=== PATIENT | male | born 1930 | race Asian ===

== ENCOUNTER → 2016-09-02 | Outpatient (CLI) | payer BC ==
[~2016-09-02] MED LIST: ALEN70SO PO; ASPI81CH43 PO; CARV3.1213 PO; FUR40T PO; LISI-275 PO; POTA20TA53 PO; SIMV-13 PO
[2016-09-02 09:23] LABS: Albumin 3.9 g/dL (3.4-5.0); BUN/Creatinine Ratio 16.4; Bilirubin, Total 0.6 mg/dL (0.2-1.0); Calcium 9.4 mg/dL (8.5-10.1); Potassium 4.1 mmol/L (3.5-5.1); Total Protein 7.1 g/dL (6.4-8.2)
== END | disposition home or self-care (01) ==
LOC: LAB 06:57
PROVIDERS: ATTEND Internal Medicine
DX: E78.00 Pure hypercholesterolemia, unspecified (principal); I10 Essential (primary) hypertension; N18.2 Chronic kidney disease, stage 2 (mild)
CPT/HCPCS: 36415; 80053; 80061

== ENCOUNTER → 2017-01-04 | Outpatient (CLI) | payer BC ==
[~2017-01-04] VITALS: Ht 175.3 cm; Wt 63.5 kg
[~2017-01-04] MED LIST changes: +CALC600T10 OR
[2017-01-04 12:08] LABS: Basophils # (auto) 0 uL; DEFINITIVE VIEW TRANSMISSION; Eosinophils # (auto) 0.1 uL; Eosinophils % (auto) 0.6 % (0.0-7.0); Hematocrit 31.2 % (41.0-53.0); Hemoglobin 9.5 g/dL (13.5-17.5); Lymphocytes # (auto) 0.7 uL; Lymphocytes % (auto) 6.7 % (10.0-50.0); Mean Corpuscular Hemoglobin 22.4 pg (28.0-32.0); Mean Corpuscular Hgb Conc. 30.5 g/dL (32.0-36.0); Mean Corpuscular Volume 73.5 fL (80.0-100.0); Mean Platelet Volume 10.3 fL (7.4-10.4); Monocytes # (auto) 0.8 uL; Monocytes % (auto) 7.6 % (0.0-12.0); Neutrophils # (auto) 8.8 uL; Neutrophils % (auto) 85.1 % (37.0-80.0); Platelet Count (auto) 265 10^3/uL (140-450); SUSPECT VIEW TRANSMISSION; White Blood Cell 10.3 10^3/uL (4.4-10.8)
[2017-01-04 12:14] LABS: INR 1.15 (0.9-1.15); Partial Thromboplastin Time 28.6 sec (22.64-33.71); Prothrombin Time 12.4 sec (9.37-12.3)
[2017-01-04 12:20] LABS: Red Cell Distribution Width 26.5 % (11.6-16.0)
[2017-01-04 12:21] LABS: Anisocytosis Moderate; Hypochromia Moderate; Microcytosis Moderate; Platelet Estimate Adequate
[2017-01-04 12:33] LABS: Albumin 3.5 g/dL (3.4-5.0); BUN/Creatinine Ratio 23.3; Bilirubin, Total 1.3 mg/dL (0.2-1.0); Calcium 8.8 mg/dL (8.5-10.1); Potassium 4.1 mmol/L (3.5-5.1); Total Protein 6.5 g/dL (6.4-8.2)
== END | disposition home or self-care (01) ==
LOC: LAB 10:59
PROVIDERS: ATTEND Internal Medicine Cardiovascular Disease
DX: Z01.810 Encounter for preprocedural cardiovascular examination (principal); T82.111A Breakdown (mechanical) of cardiac pulse generator (battery), initial encounter
CPT/HCPCS: 36415; 80053; 85025; 85610; 85730

== ENCOUNTER 2017-01-06 09:06 | Day surgery (SDC) | payer BC ==
[~2017-01-06 09:06] MED LIST changes: -ALEN70SO PO; -ASPI81CH43 PO; +CAR3125T PO; -CARV3.1213 PO; -LISI-275 PO
[2017-01-06] MEDS ORDERED: LIDOCAINE 2%HCL (LOCAL ANESTH.) INJ 20ML MDV ONE (09:55)
[2017-01-06] MEDS ORDERED: VANCOMYCIN HCL 1000 MG VL IR ONE (10:00)
[2017-01-06] MEDS ORDERED: VANCOMYCIN 1GM/250ML D5W 250 ML IV ONE (10:00)
[2017-01-06] MEDS ORDERED: ceFAZolin 1GM/50ML D5W 50 ML IV ONE (10:00)
[2017-01-06] MEDS ORDERED: MIDAZOLAM HCL 1MG/1ML-2 ML VIAL ONE (10:33)
[2017-01-06] MEDS ORDERED: fentaNYL CITRATE 100 MCG/2 ML VL ONE (10:33)
[2017-01-06] MEDS ORDERED: ceFAZolin 1GM VL ONE (10:39)
[2017-01-06] MEDS ORDERED: VANCOMYCIN HCL 1000 MG VL ONE (10:39)
== END 2017-01-06 13:25 | disposition home or self-care (01) ==
LOC: CATH 09:06
PROVIDERS: ATTEND Internal Medicine Cardiovascular Disease
DX: Z45.010 Encounter for checking and testing of cardiac pacemaker pulse generator [battery] (principal); I50.9 Heart failure, unspecified; J44.9 Chronic obstructive pulmonary disease, unspecified; I48.92 Unspecified atrial flutter; E78.00 Pure hypercholesterolemia, unspecified; I50.22 Chronic systolic (congestive) heart failure; I12.9 Hypertensive chronic kidney disease with stage 1 through stage 4 chronic kidney disease, or unspecified chronic kidney disease; N18.2 Chronic kidney disease, stage 2 (mild); J45.909 Unspecified asthma, uncomplicated; Z87.891 Personal history of nicotine dependence
CPT/HCPCS: 33228; C1785; J0690; J2250; J3010; J3370; 99152

== ENCOUNTER 2017-01-21 09:25 | Inpatient (IN) | payer BC ==
[~2017-01-21] VITALS: Ht 175.3 cm; Wt 68.8 kg
[2017-01-21] MEDS ORDERED: PIPERACILLIN-TAZOB 3.375GM 100 ML IV ONE (10:00)
[2017-01-21] MEDS ORDERED: SODIUM CHLORIDE 0.9% 1,000 ML IV ONE ×3 (10:00→10:43)
[2017-01-21] MEDS ORDERED: FUROSEMIDE 40 MG/4 ML VIAL IV ONE (10:00)
[2017-01-21 10:04] LABS: Basophils # (auto) 0 uL; DEFINITIVE VIEW TRANSMISSION; Eosinophils # (auto) 0 uL; Eosinophils % (auto) 0.1 % (0.0-7.0); Hematocrit 30.5 % (41.0-53.0); Hemoglobin 9.6 g/dL (13.5-17.5); Lymphocytes # (auto) 0.6 uL; Lymphocytes % (auto) 4.7 % (10.0-50.0); Mean Corpuscular Hemoglobin 23.5 pg (28.0-32.0); Mean Corpuscular Hgb Conc. 31.3 g/dL (32.0-36.0); Mean Corpuscular Volume 75.2 fL (80.0-100.0); Mean Platelet Volume 9.6 fL (7.4-10.4); Monocytes # (auto) 0.6 uL; Monocytes % (auto) 4.6 % (0.0-12.0); Neutrophils # (auto) 11.5 uL; Neutrophils % (auto) 90.6 % (37.0-80.0); Platelet Count (auto) 313 10^3/uL (140-450); SUSPECT VIEW TRANSMISSION; White Blood Cell 12.7 10^3/uL (4.4-10.8)
[2017-01-21 10:07] LABS: Red Cell Distribution Width 25.8 % (11.6-16.0)
[2017-01-21 10:23] LABS: Anisocytosis Moderate; Burr Cells FEW; Hypochromia Moderate; Ovalocytes FEW; Platelet Estimate Adequate
[2017-01-21 10:28] LABS: REFLEX LACTIC ACID YES OR NO YES
[2017-01-21 10:41] LABS: Albumin 3.4 g/dL (3.4-5.0); BUN/Creatinine Ratio 20.4; Bilirubin, Total 1.1 mg/dL (0.2-1.0); Calcium 8.6 mg/dL (8.5-10.1); Magnesium 3.7 mg/dL (1.6-2.6); Potassium 3.9 mmol/L (3.5-5.1); Total Protein 6.8 g/dL (6.4-8.2)
[2017-01-21 11:26] LABS: B-Type Natriuretic Peptide > 5000.00 pg/mL (0-100); Temperature: 22.5 C (20.0-25.0)
[2017-01-21 12:54] LABS: Urine Bilirubin Negative (Negative); Urine Blood TRACE /uL (Negative); Urine Color Yellow (Yellow); Urine Glucose Normal (Normal); Urine Ketone Negative (Negative); Urine Nitrite Negative (Negative); Urine RBC 6 /hpf (0 - 3); Urine Urobilinogen Normal (Negative)
[2017-01-21] MEDS ORDERED: SODIUM CHLORIDE 0.9% 1,000 ML IV SCH (13:55)
[2017-01-21] MEDS ORDERED: LORazepam 0.5 MG TAB PO PRN (14:00)
[2017-01-21] MEDS ORDERED: NITROGLYCERIN 0.4 MG SL TAB SL PRN (14:00)
[2017-01-21] MEDS ORDERED: PROMETHAZINE HCL 25 MG/ML 1ML IV PRN (14:00)
[2017-01-21] MEDS ORDERED: ACETAMINOPHEN 500 MG TAB PO PRN (14:00)
[2017-01-21] MEDS ORDERED: MORPHINE SULF INJ 2 MG/ML SYRINGE 1ML IV PRN ×2 (14:00)
[2017-01-21] MEDS ORDERED: LACTULOSE 20Gm/30ML SOLN PO PRN (14:00)
[2017-01-21] MEDS ORDERED: cefTRIAXone 1GM/50ML D5W 50 ML IV ONE (14:30)
[2017-01-21 14:59] LABS: Partial Thromboplastin Time 32.9 sec (22.64-33.71)
[2017-01-21 15:00] LABS: INR 1.21 (0.9-1.15); Prothrombin Time 13.2 sec (9.37-12.3)
[2017-01-21 15:24] LABS: Temperature: 23.1 C (20.0-25.0)
[2017-01-21] MEDS: CALCIUM W/VIT D (600MG/400IU) TAB PO SCH (15:59)
[2017-01-21] MEDS: PANTOPRAZOLE 40 MG TAB PO SCH (15:59)
[2017-01-21] MEDS: NITROGLYCERIN 0.2MG/HR TOPICAL PATCH TD SCH (16:00)
[2017-01-21 17:12] LABS: Lactic Acid w/Reflex 3.3 mmol/L (0.4-2.0)
[2017-01-21 17:14] LABS: REFLEX LACTIC ACID YES OR NO NO
[2017-01-21] MEDS ORDERED: CARVEDILOL 3.125 MG TAB PO SCH (22:00)
[2017-01-21] MEDS: CARVEDILOL 3.125 MG TAB PO SCH (22:00)
[2017-01-21] MEDS: ATORVASTATIN 20 MG TAB PO SCH (22:27)
[2017-01-22] MEDS ORDERED: ASPirin 81 mg TAB PO ONE (01:30)
[2017-01-22 06:32] LABS: Basophils # (auto) 0 uL; DEFINITIVE VIEW TRANSMISSION; Eosinophils # (auto) 0 uL; Hematocrit 29.4 % (41.0-53.0); Hemoglobin 9.3 g/dL (13.5-17.5); Lymphocytes # (auto) 0.6 uL; Lymphocytes % (auto) 5.4 % (10.0-50.0); Mean Corpuscular Hemoglobin 23.6 pg (28.0-32.0); Mean Corpuscular Hgb Conc. 31.5 g/dL (32.0-36.0); Mean Corpuscular Volume 74.9 fL (80.0-100.0); Mean Platelet Volume 9.8 fL (7.4-10.4); Monocytes # (auto) 0.6 uL; Monocytes % (auto) 4.9 % (0.0-12.0); Neutrophils # (auto) 10.8 uL; Neutrophils % (auto) 89.7 % (37.0-80.0); Platelet Count (auto) 307 10^3/uL (140-450); SUSPECT VIEW TRANSMISSION
[2017-01-22 06:53] LABS: Albumin 2.7 g/dL (3.4-5.0); Calcium 8.2 mg/dL (8.5-10.1)
[2017-01-22 06:57] LABS: BUN/Creatinine Ratio 19.8; Bilirubin, Total 0.9 mg/dL (0.2-1.0)
[2017-01-22 07:22] LABS: Red Cell Distribution Width 25.5 % (11.6-16.0)
[2017-01-22 07:43] LABS: Burr Cells MODERATE
[2017-01-22 07:44] LABS: Ovalocytes FEW; Polychromasia Slight
[2017-01-22 07:45] LABS: Anisocytosis Moderate; Hypochromia Moderate
[2017-01-22 07:46] LABS: Giant Platelets Few; Platelet Estimate Adequate
[2017-01-22 08:02] LABS: B-Type Natriuretic Peptide > 5000.00 pg/mL (0-100); Temperature: 23.1 C (20.0-25.0)
[2017-01-22] MEDS: cefTRIAXone 1GM/50ML D5W 50 ML IV SCH (09:09)
[2017-01-22] MEDS: CARVEDILOL 3.125 MG TAB PO SCH ×3 (10:00→22:47)
[2017-01-22] MEDS: NITROGLYCERIN 0.2MG/HR TOPICAL PATCH TD SCH (10:00)
[2017-01-22] MEDS: PANTOPRAZOLE 40 MG TAB PO SCH (10:49)
[2017-01-22] MEDS: CALCIUM W/VIT D (600MG/400IU) TAB PO SCH (10:49)
[2017-01-22 11:58] LABS: Vitamin B12 > 2000 pg/mL (211-911)
[2017-01-22 12:03] LABS: Temperature: 23.7 C (20.0-25.0)
[2017-01-22] MEDS: SODIUM BICARBONATE 50ML VIAL 50 ML in D5W 5% 1,000 ML IV SCH ×2 (12:57→20:05)
[2017-01-22 14:00] VITALS: BP 105/58
[2017-01-22 20:00] VITALS: BP 105/58
[2017-01-22] MEDS: ATORVASTATIN 20 MG TAB PO SCH (21:26)
[2017-01-22] MEDS: metroNIDAZOLE 500 MG TAB PO SCH (21:26)
[2017-01-22 22:00] VITALS: BP 114/59
[2017-01-23] MEDS: SODIUM BICARBONATE 50ML VIAL 50 ML in D5W 5% 1,000 ML IV SCH ×3 (04:48→21:36)
[2017-01-23 05:00] VITALS: BP 119/79
[2017-01-23] MEDS: metroNIDAZOLE 500 MG TAB PO SCH ×3 (05:19→21:33)
[2017-01-23 06:31] LABS: Basophils # (auto) 0 uL; DEFINITIVE VIEW TRANSMISSION; Eosinophils # (auto) 0 uL; Hematocrit 29.8 % (41.0-53.0); Hemoglobin 9.4 g/dL (13.5-17.5); Lymphocytes # (auto) 0.4 uL; Lymphocytes % (auto) 2.9 % (10.0-50.0); Mean Corpuscular Hemoglobin 23.7 pg (28.0-32.0); Mean Corpuscular Hgb Conc. 31.4 g/dL (32.0-36.0); Mean Corpuscular Volume 75.4 fL (80.0-100.0); Mean Platelet Volume 10.4 fL (7.4-10.4); Monocytes % (auto) 7.1 % (0.0-12.0); Neutrophils # (auto) 12.5 uL; Platelet Count (auto) 302 10^3/uL (140-450); SUSPECT VIEW TRANSMISSION; White Blood Cell 13.9 10^3/uL (4.4-10.8)
[2017-01-23 06:34] LABS: Red Cell Distribution Width 26.1 % (11.6-16.0)
[2017-01-23 06:43] LABS: Albumin 2.9 g/dL (3.4-5.0); BUN/Creatinine Ratio 20.7; Bilirubin, Total 0.8 mg/dL (0.2-1.0); Calcium 8.5 mg/dL (8.5-10.1); Potassium 4.8 mmol/L (3.5-5.1); Total Protein 6.1 g/dL (6.4-8.2)
[2017-01-23 06:55] LABS: Anisocytosis Moderate; Burr Cells MODERATE; Platelet Estimate Adequate
[2017-01-23 06:56] LABS: Hypochromia Moderate; Large Platelets FEW; Ovalocytes MODERATE
[2017-01-23 07:38] LABS: Lactic Acid w/Reflex 3.6 mmol/L (0.4-2.0)
[2017-01-23 07:43] LABS: REFLEX LACTIC ACID YES OR NO YES
[2017-01-23 09:51] VITALS: BP 124/64
[2017-01-23] MEDS: cefTRIAXone 1GM/50ML D5W 50 ML IV SCH (10:32)
[2017-01-23] MEDS: PANTOPRAZOLE 40 MG TAB PO SCH (10:52)
[2017-01-23] MEDS: CARVEDILOL 3.125 MG TAB PO SCH ×2 (10:52→21:40)
[2017-01-23] MEDS: CALCIUM W/VIT D (600MG/400IU) TAB PO SCH (10:52)
[2017-01-23] MEDS: ASPirin-EC 81 mg tab PO SCH (10:52)
[2017-01-23] MEDS: NITROGLYCERIN 0.2MG/HR TOPICAL PATCH TD SCH (10:54)
[2017-01-23 13:21] VITALS: BP 107/68
[2017-01-23 17:12] VITALS: BP 108/53
[2017-01-23 20:00] VITALS: BP 107/68
[2017-01-23] MEDS: ATORVASTATIN 20 MG TAB PO SCH (21:33)
[2017-01-23 22:00] VITALS: BP 103/64
[2017-01-24 05:00] VITALS: BP 113/55
[2017-01-24] MEDS: metroNIDAZOLE 500 MG TAB PO SCH ×3 (06:44→21:25)
[2017-01-24] MEDS: SODIUM BICARBONATE 50ML VIAL 50 ML in D5W 5% 1,000 ML IV SCH (06:44)
[2017-01-24 07:02] LABS: Basophils # (auto) 0 uL; DEFINITIVE VIEW TRANSMISSION; Eosinophils # (auto) 0.1 uL; Eosinophils % (auto) 0.8 % (0.0-7.0); Hematocrit 26.6 % (41.0-53.0); Hemoglobin 8.2 g/dL (13.5-17.5); Lymphocytes # (auto) 0.4 uL; Mean Corpuscular Hemoglobin 23.5 pg (28.0-32.0); Mean Corpuscular Hgb Conc. 30.8 g/dL (32.0-36.0); Mean Corpuscular Volume 76.3 fL (80.0-100.0); Mean Platelet Volume 9.9 fL (7.4-10.4); Monocytes # (auto) 0.7 uL; Monocytes % (auto) 5.7 % (0.0-12.0); Neutrophils # (auto) 10.9 uL; Neutrophils % (auto) 90.5 % (37.0-80.0); Platelet Count (auto) 248 10^3/uL (140-450); SUSPECT VIEW TRANSMISSION
[2017-01-24 07:03] LABS: Potassium 3.3 mmol/L (3.5-5.1)
[2017-01-24 07:06] LABS: BUN/Creatinine Ratio 21.5; Calcium 7.8 mg/dL (8.5-10.1)
[2017-01-24 07:13] LABS: Red Cell Distribution Width 25.7 % (11.6-16.0)
[2017-01-24 08:54] VITALS: BP 105/59
[2017-01-24 08:58] LABS: Platelet Estimate Adequate
[2017-01-24 08:59] LABS: Anisocytosis Moderate; Burr Cells MODERATE; Hypochromia Moderate; Large Platelets FEW; Ovalocytes MODERATE
[2017-01-24] MEDS ORDERED: POTASSIUM CHL 20 Meq TABLET PO ONE ×2 (09:00→09:54)
[2017-01-24] MEDS: cefTRIAXone 1GM/50ML D5W 50 ML IV SCH (09:21)
[2017-01-24] MEDS: CALCIUM W/VIT D (600MG/400IU) TAB PO SCH (09:56)
[2017-01-24] MEDS: NITROGLYCERIN 0.2MG/HR TOPICAL PATCH TD SCH (09:56)
[2017-01-24] MEDS: PANTOPRAZOLE 40 MG TAB PO SCH (10:00)
[2017-01-24] MEDS: CARVEDILOL 3.125 MG TAB PO SCH ×2 (10:01→21:25)
[2017-01-24] MEDS: ASPirin-EC 81 mg tab PO SCH (10:02)
[2017-01-24 13:00] VITALS: BP 107/54
[2017-01-24 17:00] VITALS: BP 113/49
[2017-01-24] MEDS: D5W/SOD CHL 0.45%/KCL 20MEQ 1,000 ML IV SCH (17:27)
[2017-01-24 20:00] VITALS: BP 106/54
[2017-01-24] MEDS: ATORVASTATIN 20 MG TAB PO SCH (21:25)
[2017-01-24 22:00] VITALS: BP 106/54
[2017-01-25 05:00] VITALS: BP 112/62
[2017-01-25 05:34] LABS: Basophils # (auto) 0 uL; Basophils % (auto) 0.1 % (0.0-2.0); DEFINITIVE VIEW TRANSMISSION; Eosinophils # (auto) 0.2 uL; Eosinophils % (auto) 1.5 % (0.0-7.0); Hematocrit 29.8 % (41.0-53.0); Hemoglobin 9.4 g/dL (13.5-17.5); Lymphocytes # (auto) 6.5 uL; Lymphocytes % (auto) 48.1 % (10.0-50.0); Mean Corpuscular Hemoglobin 23.6 pg (28.0-32.0); Mean Corpuscular Hgb Conc. 31.4 g/dL (32.0-36.0); Mean Corpuscular Volume 75.3 fL (80.0-100.0); Mean Platelet Volume 10.1 fL (7.4-10.4); Monocytes # (auto) 0.1 uL; Monocytes % (auto) 0.9 % (0.0-12.0); Neutrophils # (auto) 6.6 uL; Neutrophils % (auto) 49.4 % (37.0-80.0); Platelet Count (auto) 284 10^3/uL (140-450); SUSPECT VIEW TRANSMISSION; White Blood Cell 13.4 10^3/uL (4.4-10.8)
[2017-01-25 05:55] LABS: Red Cell Distribution Width 25.6 % (11.6-16.0)
[2017-01-25 06:03] LABS: Potassium 3.5 mmol/L (3.5-5.1)
[2017-01-25 06:10] LABS: Albumin 2.4 g/dL (3.4-5.0); BUN/Creatinine Ratio 21.9; Calcium 7.7 mg/dL (8.5-10.1)
[2017-01-25 06:12] LABS: Bilirubin, Total 0.7 mg/dL (0.2-1.0); Total Protein 5.5 g/dL (6.4-8.2)
[2017-01-25] MEDS: D5W/SOD CHL 0.45%/KCL 20MEQ 1,000 ML IV SCH ×3 (06:27→17:30)
[2017-01-25 07:38] LABS: Anisocytosis Moderate; Platelet Estimate Adequate
[2017-01-25 07:39] LABS: Hypochromia Moderate; Microcytosis Slight; Ovalocytes FEW
[2017-01-25 07:40] LABS: Burr Cells MODERATE
[2017-01-25] MEDS: metroNIDAZOLE 500 MG TAB PO SCH ×3 (07:40→22:03)
[2017-01-25 08:00] VITALS: BP 105/59
[2017-01-25 09:00] VITALS: BP 112/68
[2017-01-25] MEDS: NITROGLYCERIN 0.2MG/HR TOPICAL PATCH TD SCH (10:00)
[2017-01-25] MEDS: CARVEDILOL 3.125 MG TAB PO SCH ×2 (10:00→22:03)
[2017-01-25] MEDS: cefTRIAXone 1GM/50ML D5W 50 ML IV SCH (10:24)
[2017-01-25] MEDS: PANTOPRAZOLE 40 MG TAB PO SCH (10:24)
[2017-01-25] MEDS: CALCIUM W/VIT D (600MG/400IU) TAB PO SCH (10:24)
[2017-01-25] MEDS: ASPirin-EC 81 mg tab PO SCH (10:24)
[2017-01-25 13:00] VITALS: BP 112/65
[2017-01-25 17:00] VITALS: BP 124/67
[2017-01-25] MEDS: BOOST PLUS 8 ounce PO SCH (18:00)
[2017-01-25 21:30] VITALS: BP 117/57
[2017-01-25] MEDS: ATORVASTATIN 20 MG TAB PO SCH (22:03)
[2017-01-25] MEDS: TEMAZEPAM 15 MG CAP PO PRN (22:03)
[2017-01-26] MEDS: D5W/SOD CHL 0.45%/KCL 20MEQ 1,000 ML IV SCH ×3 (01:05→18:30)
[2017-01-26 05:00] VITALS: BP 105/64
[2017-01-26] MEDS: metroNIDAZOLE 500 MG TAB PO SCH ×3 (05:33→21:46)
[2017-01-26 06:03] LABS: Basophils # (auto) 0 uL; DEFINITIVE VIEW TRANSMISSION; Eosinophils # (auto) 0.1 uL; Eosinophils % (auto) 0.9 % (0.0-7.0); Hematocrit 29.5 % (41.0-53.0); Lymphocytes # (auto) 0.6 uL; Lymphocytes % (auto) 5.3 % (10.0-50.0); Mean Corpuscular Hemoglobin 23.6 pg (28.0-32.0); Mean Corpuscular Hgb Conc. 30.6 g/dL (32.0-36.0); Mean Platelet Volume 9.5 fL (7.4-10.4); Monocytes % (auto) 7.9 % (0.0-12.0); Neutrophils # (auto) 10.4 uL; Neutrophils % (auto) 85.9 % (37.0-80.0); Platelet Count (auto) 255 10^3/uL (140-450); SUSPECT VIEW TRANSMISSION; White Blood Cell 12.1 10^3/uL (4.4-10.8)
[2017-01-26 06:13] LABS: Red Cell Distribution Width 25.6 % (11.6-16.0)
[2017-01-26 06:16] LABS: BUN/Creatinine Ratio 22.7; Calcium 7.7 mg/dL (8.5-10.1); Potassium 3.3 mmol/L (3.5-5.1)
[2017-01-26 06:45] LABS: Anisocytosis Moderate; Burr Cells MODERATE; Platelet Estimate Adequate
[2017-01-26 06:46] LABS: Hypochromia Moderate; Microcytosis Slight; Schistocytes FEW
[2017-01-26 06:47] LABS: Hypersegmented Neutrophils Present; Ovalocytes MODERATE
[2017-01-26] MEDS: BOOST PLUS 8 ounce PO SCH ×2 (08:00→18:12)
[2017-01-26 08:30] VITALS: BP 102/49
[2017-01-26] MEDS ORDERED: MIDAZOLAM HCL 1MG/1ML-2 ML VIAL ONE (08:49)
[2017-01-26] MEDS ORDERED: fentaNYL CITRATE 100 MCG/2 ML VL ONE (08:49)
[2017-01-26] MEDS ORDERED: LIDOCAINE 2%HCL (LOCAL ANESTH.) INJ 20ML MDV ONE ×2 (08:53→11:20)
[2017-01-26] MEDS: NITROGLYCERIN 0.2MG/HR TOPICAL PATCH TD SCH (10:00)
[2017-01-26] MEDS: CALCIUM W/VIT D (600MG/400IU) TAB PO SCH (10:45)
[2017-01-26] MEDS: cefTRIAXone 1GM/50ML D5W 50 ML IV SCH (10:45)
[2017-01-26] MEDS: ASPirin-EC 81 mg tab PO SCH (10:46)
[2017-01-26] MEDS: CARVEDILOL 3.125 MG TAB PO SCH ×2 (10:46→21:45)
[2017-01-26] MEDS: PANTOPRAZOLE 40 MG TAB PO SCH (10:46)
[2017-01-26 12:00] VITALS: BP 108/61
[2017-01-26 17:30] VITALS: BP 108/56
[2017-01-26 21:37] VITALS: BP 92/52
[2017-01-26] MEDS: ATORVASTATIN 20 MG TAB PO SCH (21:46)
[2017-01-26] MEDS: TEMAZEPAM 15 MG CAP PO PRN (21:46)
[2017-01-27] MEDS: D5W/SOD CHL 0.45%/KCL 20MEQ 1,000 ML IV SCH ×4 (02:53→22:26)
[2017-01-27] MEDS: metroNIDAZOLE 500 MG TAB PO SCH ×3 (05:32→22:04)
[2017-01-27 05:36] VITALS: BP 127/64
[2017-01-27 07:45] LABS: Basophils # (auto) 0 uL; DEFINITIVE VIEW TRANSMISSION; Eosinophils # (auto) 0.1 uL; Hematocrit 28.1 % (41.0-53.0); Hemoglobin 8.5 g/dL (13.5-17.5); Lymphocytes # (auto) 0.6 uL; Lymphocytes % (auto) 5.5 % (10.0-50.0); Mean Corpuscular Hemoglobin 23.2 pg (28.0-32.0); Mean Corpuscular Hgb Conc. 30.3 g/dL (32.0-36.0); Mean Corpuscular Volume 76.6 fL (80.0-100.0); Mean Platelet Volume 10.1 fL (7.4-10.4); Monocytes # (auto) 0.8 uL; Monocytes % (auto) 7.2 % (0.0-12.0); Neutrophils # (auto) 9.5 uL; Neutrophils % (auto) 86.3 % (37.0-80.0); Platelet Count (auto) 274 10^3/uL (140-450); SUSPECT VIEW TRANSMISSION
[2017-01-27 07:55] LABS: Red Cell Distribution Width 25.4 % (11.6-16.0)
[2017-01-27 08:00] VITALS: BP_SYST 105; BP_SYST 127; BP_DIAS 64; BP_DIAS 78
[2017-01-27] MEDS: BOOST PLUS 8 ounce PO SCH ×2 (08:00→18:00)
[2017-01-27 08:12] LABS: BUN/Creatinine Ratio 22.8; Calcium 7.4 mg/dL (8.5-10.1); Potassium 3.6 mmol/L (3.5-5.1)
[2017-01-27] MEDS: NITROGLYCERIN 0.2MG/HR TOPICAL PATCH TD SCH (10:00)
[2017-01-27] MEDS: CALCIUM W/VIT D (600MG/400IU) TAB PO SCH (10:28)
[2017-01-27] MEDS: PANTOPRAZOLE 40 MG TAB PO SCH (10:28)
[2017-01-27] MEDS: ASPirin-EC 81 mg tab PO SCH (10:36)
[2017-01-27] MEDS: CARVEDILOL 3.125 MG TAB PO SCH ×2 (10:37→22:00)
[2017-01-27 11:20] LABS: Anisocytosis Moderate; Microcytosis Slight
[2017-01-27 11:21] LABS: Burr Cells MODERATE; Hypochromia Moderate
[2017-01-27 11:24] LABS: Ovalocytes FEW; Platelet Estimate Adequate; Schistocytes FEW; Tear Drop Cells FEW
[2017-01-27 13:00] VITALS: BP 105/53
[2017-01-27] MEDS: cefTRIAXone 1GM/50ML D5W 50 ML IV SCH (13:27)
[2017-01-27 17:44] VITALS: BP 105/55
[2017-01-27 22:00] VITALS: BP 90/47
[2017-01-27] MEDS: ATORVASTATIN 20 MG TAB PO SCH (22:04)
[2017-01-27 23:35] VITALS: BP 117/69
[2017-01-28 05:00] VITALS: BP 100/62
[2017-01-28] MEDS: metroNIDAZOLE 500 MG TAB PO SCH ×2 (05:32→15:01)
[2017-01-28 06:12] LABS: Basophils # (auto) 0 uL; DEFINITIVE VIEW TRANSMISSION; Eosinophils # (auto) 0.1 uL; Eosinophils % (auto) 0.6 % (0.0-7.0); Hematocrit 28.6 % (41.0-53.0); Hemoglobin 8.8 g/dL (13.5-17.5); Lymphocytes # (auto) 0.8 uL; Lymphocytes % (auto) 6.1 % (10.0-50.0); Mean Corpuscular Hemoglobin 23.2 pg (28.0-32.0); Mean Corpuscular Hgb Conc. 30.7 g/dL (32.0-36.0); Mean Corpuscular Volume 75.5 fL (80.0-100.0); Mean Platelet Volume 9.7 fL (7.4-10.4); Monocytes # (auto) 0.8 uL; Neutrophils # (auto) 11.8 uL; Neutrophils % (auto) 87.3 % (37.0-80.0); Platelet Count (auto) 259 10^3/uL (140-450); SUSPECT VIEW TRANSMISSION; White Blood Cell 13.5 10^3/uL (4.4-10.8)
[2017-01-28 06:46] LABS: BUN/Creatinine Ratio 24.2; Calcium 7.7 mg/dL (8.5-10.1); Potassium 3.9 mmol/L (3.5-5.1)
[2017-01-28 06:49] LABS: Red Cell Distribution Width 25.8 % (11.6-16.0)
[2017-01-28 07:41] LABS: Anisocytosis Moderate; Hypochromia Moderate; Platelet Estimate Adequate
[2017-01-28 07:42] LABS: Burr Cells FEW; Microcytosis Slight; Ovalocytes FEW; Schistocytes FEW
[2017-01-28 08:00] VITALS: BP 90/47
[2017-01-28] MEDS: BOOST PLUS 8 ounce PO SCH (08:00)
[2017-01-28 09:00] VITALS: BP 108/68
[2017-01-28] MEDS: cefTRIAXone 1GM/50ML D5W 50 ML IV SCH (09:18)
[2017-01-28] MEDS: CALCIUM W/VIT D (600MG/400IU) TAB PO SCH (11:30)
[2017-01-28] MEDS: CARVEDILOL 3.125 MG TAB PO SCH (11:31)
[2017-01-28] MEDS: ASPirin-EC 81 mg tab PO SCH (11:31)
[2017-01-28] MEDS: PANTOPRAZOLE 40 MG TAB PO SCH (11:31)
[2017-01-28] MEDS: NITROGLYCERIN 0.2MG/HR TOPICAL PATCH TD SCH (11:46)
[2017-01-28] MEDS: HYDROcodone-ACET 5/325MG TAB PO PRN ×2 (12:00→17:46)
[2017-01-28 13:00] VITALS: BP 110/64
[2017-01-28] MEDS ORDERED: IOHEXOL 300 MG/ML 100ML BOTTLE IJ ONE (14:06)
[2017-01-28 16:29] VITALS: BP 116/52
[2017-01-28 16:36] VITALS: BP 117/44
== END 2017-01-28 18:30 | disposition hospice, home (50) | DRG 280 ==
LOC: ER 09:25 → TELE 09:26 → TELE-E-ADS 01-22 14:17 → TELE-CENTR 01-22 16:19
PROVIDERS: ADMIT Internal Medicine; ATTEND Family Medicine
PROC: 0BBK3ZX Excision of Right Lung, Percutaneous Approach, Diagnostic (ICD-10-PCS; principal; 2017-01-26)
PROC: 0W9930Z Drainage of Right Pleural Cavity with Drainage Device, Percutaneous Approach (ICD-10-PCS; 2017-01-26)
DX: I21.4 Non-ST elevation (NSTEMI) myocardial infarction (principal); I50.43 Acute on chronic combined systolic (congestive) and diastolic (congestive) heart failure; G93.41 Metabolic encephalopathy; S06.5X9A Traumatic subdural hemorrhage with loss of consciousness of unspecified duration, initial encounter; N17.9 Acute kidney failure, unspecified; I13.0 Hypertensive heart and chronic kidney disease with heart failure and stage 1 through stage 4 chronic kidney disease, or unspecified chronic kidney disease; E87.0 Hyperosmolality and hypernatremia; I42.0 Dilated cardiomyopathy; N13.30 Unspecified hydronephrosis; J93.9 Pneumothorax, unspecified; N39.0 Urinary tract infection, site not specified; A04.7 Enterocolitis due to Clostridium difficile; Z51.5 Encounter for palliative care; E78.5 Hyperlipidemia, unspecified; F03.90 Unspecified dementia, unspecified severity, without behavioral disturbance, psychotic disturbance, mood disturbance, and anxiety; I25.10 Atherosclerotic heart disease of native coronary artery without angina pectoris; I48.91 Unspecified atrial fibrillation; D18.1 Lymphangioma, any site; K59.00 Constipation, unspecified; J44.9 Chronic obstructive pulmonary disease, unspecified; N18.9 Chronic kidney disease, unspecified; N28.1 Cyst of kidney, acquired; N32.0 Bladder-neck obstruction; R16.0 Hepatomegaly, not elsewhere classified; R29.6 Repeated falls; D63.8 Anemia in other chronic diseases classified elsewhere; I49.5 Sick sinus syndrome; I71.4 Abdominal aortic aneurysm, without rupture; N40.0 Benign prostatic hyperplasia without lower urinary tract symptoms; G89.29 Other chronic pain; M54.9 Dorsalgia, unspecified; D50.9 Iron deficiency anemia, unspecified; R91.8 Other nonspecific abnormal finding of lung field; R22.1 Localized swelling, mass and lump, neck; I27.2 Other secondary pulmonary hypertension; Z95.0 Presence of cardiac pacemaker; Z85.118 Personal history of other malignant neoplasm of bronchus and lung; Z82.3 Family history of stroke; Z71.89 Other specified counseling
CPT/HCPCS: 10022; 36415; 51702; 70450; 70470; 71010; 71250; 73560; 74176; 74177; 76775; 77012; 80048; 80053; 80061; 81001; 82550; 82570; 82607; 82746; 83036; 83605; 83735; 83880; 84300; 84443; 84484; 85025; 85610; 85652; 85730; 86141; 87040; 87045; 87081; 87086; 87493; 87899; 93005; 93306; 93886; 93970; 96365; 96366; 96375; 96376; 97110; 97116; 97163; 97530; 99291; A4223; C1729; J0696; J2250; J2543; J7042

== ENCOUNTER 2017-02-02 04:20 | Emergency (ER) | payer BC ==
[~2017-02-02] VITALS: Ht 175.3 cm; Wt 63.5 kg
[2017-02-02 04:46] VITALS: BP 113/66
== END 2017-02-02 08:32 | disposition home or self-care (01) ==
LOC: ER 04:20
DX: S61.411A Laceration without foreign body of right hand, initial encounter (principal); Z46.6 Encounter for fitting and adjustment of urinary device; Z48.01 Encounter for change or removal of surgical wound dressing; Z79.899 Other long term (current) drug therapy; R53.1 Weakness; I13.0 Hypertensive heart and chronic kidney disease with heart failure and stage 1 through stage 4 chronic kidney disease, or unspecified chronic kidney disease; N18.9 Chronic kidney disease, unspecified; I50.9 Heart failure, unspecified; J44.9 Chronic obstructive pulmonary disease, unspecified; E78.5 Hyperlipidemia, unspecified
CPT/HCPCS: 12001; 51702; 93005

== ENCOUNTER 2017-02-21 17:06 | Inpatient (IN) | payer BC ==
[~2017-02-21] VITALS: Ht 162.6 cm; Wt 51.0 kg
[2017-02-21 18:53] LABS: Basophils # (auto) 0 uL; CONDITION Y; DEFINITIVE SEE PRINTOUT; Eosinophils # (auto) 0 uL; Hematocrit 32.8 % (41.0-53.0); Hemoglobin 10.4 g/dL (13.5-17.5); Lymphocytes # (auto) 0.5 uL; Lymphocytes % (auto) 3.8 % (10.0-50.0); Mean Corpuscular Hemoglobin 24.2 pg (28.0-32.0); Mean Corpuscular Hgb Conc. 31.8 g/dL (32.0-36.0); Mean Platelet Volume 9.6 fL (7.4-10.4); Monocytes # (auto) 0.7 uL; Monocytes % (auto) 5.2 % (0.0-12.0); Neutrophils # (auto) 12.9 uL; Platelet Count (auto) 310 10^3/uL (140-450); White Blood Cell 14.2 10^3/uL (4.4-10.8)
[2017-02-21 19:17] LABS: Albumin 3.3 g/dL (3.4-5.0); Calcium 10.3 mg/dL (8.5-10.1); Potassium 3.4 mmol/L (3.5-5.1)
[2017-02-21 19:19] LABS: BUN/Creatinine Ratio 46.2
[2017-02-21 19:19] LABS: Urine Bilirubin Negative (Negative); Urine Blood Negative /uL (Negative); Urine Ca Oxalate Crystal FEW (None Seen); Urine Color Yellow (Yellow); Urine Glucose Normal (Normal); Urine Hyaline Cast FEW /lpf (0 - 2); Urine Ketone Negative (Negative); Urine Nitrite Negative (Negative); Urine RBC 12 /hpf (0 - 3); Urine Squamous Epithelial Cell FEW /hpf (<5); Urine Urobilinogen Normal (Negative); Urine pH 5.5 (5.0-8.0)
[2017-02-21 19:22] LABS: Total Protein 6.9 g/dL (6.4-8.2)
[2017-02-21 19:28] LABS: Red Cell Distribution Width 21.5 % (11.6-16.0)
[2017-02-21 20:00] LABS: INR 1.07 (0.9-1.15); Partial Thromboplastin Time 27.2 sec (22.64-33.71); Prothrombin Time 11.7 sec (9.37-12.3)
[2017-02-21 20:14] LABS: Platelet Estimate Adequate
[2017-02-21 20:15] LABS: Anisocytosis Moderate; Hypochromia Moderate; Ovalocytes FEW; Stomatocytes Mode
[2017-02-21 20:16] LABS: B-Type Natriuretic Peptide 3349.23 pg/mL (0-100)
[2017-02-21] MEDS: SODIUM CHLORIDE 0.9% 1,000 ML IV ONE ×2 (20:17→21:34)
[2017-02-21 20:18] LABS: Temperature: 23.3 C (20.0-25.0)
[2017-02-21] MEDS ORDERED: ACETAMINOPHEN 325 MG TAB PO PRN (23:45)
[2017-02-21] MEDS ORDERED: ENOXAPARIN SOD 60 MG/0.6 ML SYRINGE SC ONE (23:45)
[2017-02-21] MEDS ORDERED: TEMAZEPAM 15 MG CAP PO PRN (23:45)
[2017-02-21] MEDS ORDERED: CARVEDILOL 3.125 MG TAB PO ONE (23:45)
[2017-02-21] MEDS ORDERED: MORPHINE SULF INJ 2 MG/ML SYRINGE 1ML IV PRN (23:45)
[2017-02-21] MEDS ORDERED: ASPirin 81 mg TAB PO ONE (23:45)
[2017-02-21] MEDS ORDERED: ONDANSETRON HCL 4 MG/2 ML VIAL IV PRN (23:45)
[2017-02-21] MEDS ORDERED: HYDROcodone-ACET 5/325MG TAB PO PRN (23:45)
[2017-02-21] MEDS ORDERED: NITROGLYCERIN 0.4 MG SL TAB SL PRN (23:45)
[2017-02-22 08:09] LABS: Albumin 3.1 g/dL (3.4-5.0); BUN/Creatinine Ratio 43.1; Calcium 9.8 mg/dL (8.5-10.1); Potassium 3.4 mmol/L (3.5-5.1)
[2017-02-22 08:12] LABS: Bilirubin, Total 0.9 mg/dL (0.2-1.0); Total Protein 6.8 g/dL (6.4-8.2)
[2017-02-22] MEDS ORDERED: ADENOSINE 6 MG/2 ML INJ IV ONE ×4 (09:14→09:30)
[2017-02-22 09:25] LABS: Basophils # (auto) 0 uL; CONDITION Y; DEFINITIVE SEE PRINTOUT; Eosinophils # (auto) 0 uL; Hematocrit 33.2 % (41.0-53.0); Hemoglobin 10.5 g/dL (13.5-17.5); Lymphocytes # (auto) 0.6 uL; Lymphocytes % (auto) 3.8 % (10.0-50.0); Mean Corpuscular Hemoglobin 24.3 pg (28.0-32.0); Mean Corpuscular Hgb Conc. 31.7 g/dL (32.0-36.0); Mean Corpuscular Volume 76.6 fL (80.0-100.0); Mean Platelet Volume 10.3 fL (7.4-10.4); Monocytes # (auto) 1.1 uL; Monocytes % (auto) 6.9 % (0.0-12.0); Neutrophils % (auto) 89.3 % (37.0-80.0); Platelet Count (auto) 242 10^3/uL (140-450); White Blood Cell 15.7 10^3/uL (4.4-10.8)
[2017-02-22 09:26] LABS: Red Cell Distribution Width 21.7 % (11.6-16.0)
[2017-02-22] MEDS: CARVEDILOL 3.125 MG TAB PO SCH ×2 (09:59→22:00)
[2017-02-22] MEDS ORDERED: FUROSEMIDE 40 MG TAB PO SCH (10:00)
[2017-02-22] MEDS ORDERED: ENOXAPARIN SOD 40 MG/0.4 ML SYRINGE SC SCH (10:00)
[2017-02-22] MEDS: cefTRIAXone 1GM/50ML D5W 50 ML IV SCH (10:14)
[2017-02-22] MEDS: ALBUMIN 25% 100 ML IV SCH ×2 (10:15→11:05)
[2017-02-22] MEDS: ASPirin 81 mg TAB PO SCH (10:16)
[2017-02-22] MEDS: ENOXAPARIN SOD 30 MG/0.3 ML SYRINGE SC SCH (10:16)
[2017-02-22] MEDS: FAMOTIDINE 20 MG TAB PO SCH ×2 (10:16→23:37)
[2017-02-22 10:24] LABS: Anisocytosis Moderate; Hypochromia Moderate; Microcytosis Slight; Platelet Estimate Adequate
[2017-02-22 10:25] LABS: Ovalocytes FEW
[2017-02-22] MEDS ORDERED: DEXTROSE (50%) 50ML SYRG IV PRN (17:00)
[2017-02-22] MEDS ORDERED: POTASSIUM CHL 10 Meq TABLET PO ONE (17:00)
[2017-02-22] MEDS: Boost Glucose Control 8 Ounces PO SCH (18:59)
[2017-02-22] MEDS: ACCU-CHEK COMFORT CURVE STRIP VI SCH ×2 (19:00→22:24)
[2017-02-22] MEDS: TAMSULOSIN HYDROCHLORIDE 0.4 MG CAP PO SCH (20:03)
[2017-02-22] MEDS: InsuLIN REG 1unit/0.01ml Soln (100units/ml) SC SCH ×2 (20:06→22:00)
[2017-02-22] MEDS: metroNIDAZOLE 500 MG TAB PO SCH (23:37)
[2017-02-23 03:56] LABS: Basophils # (auto) 0 uL; CONDITION Y; DEFINITIVE SEE PRINTOUT; Eosinophils # (auto) 0 uL; Hematocrit 31.8 % (41.0-53.0); Hemoglobin 9.9 g/dL (13.5-17.5); Lymphocytes # (auto) 0.6 uL; Lymphocytes % (auto) 3.4 % (10.0-50.0); Mean Corpuscular Hemoglobin 24.1 pg (28.0-32.0); Mean Corpuscular Hgb Conc. 31.1 g/dL (32.0-36.0); Mean Corpuscular Volume 77.6 fL (80.0-100.0); Mean Platelet Volume 11.3 fL (7.4-10.4); Monocytes # (auto) 1.1 uL; Monocytes % (auto) 6.3 % (0.0-12.0); Neutrophils # (auto) 15.9 uL; Neutrophils % (auto) 90.3 % (37.0-80.0); Platelet Count (auto) 226 10^3/uL (140-450); SUSPECT SEE PRINTOUT; White Blood Cell 17.6 10^3/uL (4.4-10.8)
[2017-02-23 04:15] LABS: Albumin 3.7 g/dL (3.4-5.0); Calcium 9.2 mg/dL (8.5-10.1); Potassium 3.4 mmol/L (3.5-5.1)
[2017-02-23 04:30] LABS: Red Cell Distribution Width 22.1 % (11.6-16.0)
[2017-02-23 04:32] LABS: Bilirubin, Total 1.2 mg/dL (0.2-1.0)
[2017-02-23 05:38] LABS: Anisocytosis Moderate; Hypochromia Moderate; Ovalocytes FEW; Platelet Estimate Adequate
[2017-02-23 05:39] LABS: Microcytosis Slight
[2017-02-23] MEDS: metroNIDAZOLE 500 MG TAB PO SCH ×3 (06:19→21:25)
[2017-02-23] MEDS: InsuLIN REG 1unit/0.01ml Soln (100units/ml) SC SCH ×4 (07:40→21:26)
[2017-02-23] MEDS: ACCU-CHEK COMFORT CURVE STRIP VI SCH ×4 (07:40→21:26)
[2017-02-23] MEDS: cefTRIAXone 1GM/50ML D5W 50 ML IV SCH (08:24)
[2017-02-23] MEDS: Boost Glucose Control 8 Ounces PO SCH ×3 (08:29→18:48)
[2017-02-23] MEDS ORDERED: VANCOMYCIN PER PHARMACY 0 MG IV SCH (08:45)
[2017-02-23] MEDS ORDERED: POTASSIUM CHL 10 Meq TABLET PO ONE (08:45)
[2017-02-23] MEDS ORDERED: LORazepam 2MG/ML-1ML VIAL ONE (10:12)
[2017-02-23] MEDS: LORazepam 2MG/ML-1ML VIAL IV PRN ×2 (10:15→21:29)
[2017-02-23] MEDS: ENOXAPARIN SOD 30 MG/0.3 ML SYRINGE SC SCH (10:38)
[2017-02-23] MEDS: FAMOTIDINE 20 MG TAB PO SCH ×2 (10:38→21:25)
[2017-02-23] MEDS: VANCOMYCIN 750 MG in D5W 5% 250 ML IV SCH (10:38)
[2017-02-23] MEDS: CARVEDILOL 3.125 MG TAB PO SCH ×2 (10:38→21:26)
[2017-02-23] MEDS: ASPirin 81 mg TAB PO SCH (10:39)
[2017-02-23 13:00] VITALS: BP_SYST 117; BP_SYST 99; BP_DIAS 51; BP_DIAS 57
[2017-02-23] MEDS: TAMSULOSIN HYDROCHLORIDE 0.4 MG CAP PO SCH (18:19)
[2017-02-23 18:30] VITALS: BP 100/60
[2017-02-23 20:00] VITALS: BP 97/61
[2017-02-23] MEDS: SODIUM CHLORIDE 0.9% 1,000 ML IV SCH (21:29)
[2017-02-23 22:00] VITALS: BP 97/61
[2017-02-24 05:00] VITALS: BP 90/63
[2017-02-24] MEDS: metroNIDAZOLE 500 MG TAB PO SCH ×3 (06:09→22:08)
[2017-02-24] MEDS: ACCU-CHEK COMFORT CURVE STRIP VI SCH ×4 (06:15→22:09)
[2017-02-24] MEDS: InsuLIN REG 1unit/0.01ml Soln (100units/ml) SC SCH ×4 (06:22→22:09)
[2017-02-24 08:00] VITALS: BP 93/34
[2017-02-24] MEDS: Boost Glucose Control 8 Ounces PO SCH ×3 (08:00→18:12)
[2017-02-24] MEDS: SODIUM CHLORIDE 0.9% 1,000 ML IV SCH ×2 (08:20→22:09)
[2017-02-24] MEDS: cefTRIAXone 1GM/50ML D5W 50 ML IV SCH (09:00)
[2017-02-24] MEDS: CARVEDILOL 3.125 MG TAB PO SCH ×2 (10:00→22:00)
[2017-02-24] MEDS: ASPirin 81 mg TAB PO SCH (10:31)
[2017-02-24] MEDS: FAMOTIDINE 20 MG TAB PO SCH ×2 (10:33→22:08)
[2017-02-24] MEDS: VANCOMYCIN 750 MG in D5W 5% 250 ML IV SCH (10:33)
[2017-02-24] MEDS: ENOXAPARIN SOD 30 MG/0.3 ML SYRINGE SC SCH (10:33)
[2017-02-24 13:00] VITALS: BP_SYST 65
[2017-02-24] MEDS ORDERED: MORPHINE SULFATE 4 MG/ML SYRG IV PRN (14:28)
[2017-02-24 16:38] LABS: Basophils # (auto) 0 uL; CONDITION Y; DEFINITIVE SEE PRINTOUT; Eosinophils # (auto) 0 uL; Hematocrit 29.8 % (41.0-53.0); Hemoglobin 9.4 g/dL (13.5-17.5); Lymphocytes # (auto) 0.7 uL; Lymphocytes % (auto) 4.6 % (10.0-50.0); Mean Corpuscular Hemoglobin 24.5 pg (28.0-32.0); Mean Corpuscular Hgb Conc. 31.4 g/dL (32.0-36.0); Mean Corpuscular Volume 77.8 fL (80.0-100.0); Mean Platelet Volume 11.1 fL (7.4-10.4); Monocytes # (auto) 0.9 uL; Monocytes % (auto) 6.1 % (0.0-12.0); Neutrophils # (auto) 13.8 uL; Neutrophils % (auto) 89.3 % (37.0-80.0); Platelet Count (auto) 197 10^3/uL (140-450); White Blood Cell 15.5 10^3/uL (4.4-10.8)
[2017-02-24 16:43] LABS: Red Cell Distribution Width 22.8 % (11.6-16.0)
[2017-02-24 17:16] LABS: Albumin 3.2 g/dL (3.4-5.0); BUN/Creatinine Ratio 58.2; Bilirubin, Total 0.5 mg/dL (0.2-1.0); Potassium 3.2 mmol/L (3.5-5.1); Total Protein 6.2 g/dL (6.4-8.2)
[2017-02-24 17:47] LABS: Anisocytosis Moderate; Microcytosis Slight; Platelet Estimate Adequate
[2017-02-24 17:48] LABS: Hypochromia Moderate; Ovalocytes FEW
[2017-02-24] MEDS: TAMSULOSIN HYDROCHLORIDE 0.4 MG CAP PO SCH (18:15)
[2017-02-24] MEDS ORDERED: HALOPERIDOL LACTATE 5 MG/ML INJ VIAL IM PRN (18:45)
[2017-02-24 20:58] VITALS: BP 91/58
[2017-02-25 05:00] VITALS: BP 99/54
[2017-02-25] MEDS: LORazepam 2MG/ML-1ML VIAL IV PRN ×2 (05:04→09:28)
[2017-02-25] MEDS: metroNIDAZOLE 500 MG TAB PO SCH ×2 (05:31→13:57)
[2017-02-25] MEDS: ACCU-CHEK COMFORT CURVE STRIP VI SCH ×2 (06:17→12:08)
[2017-02-25] MEDS: InsuLIN REG 1unit/0.01ml Soln (100units/ml) SC SCH ×2 (06:18→11:30)
[2017-02-25] MEDS: Boost Glucose Control 8 Ounces PO SCH ×2 (08:01→11:27)
[2017-02-25 08:23] LABS: Basophils # (auto) 0 uL; Basophils % (auto) 0.2 % (0.0-2.0); CONDITION Y; DEFINITIVE SEE PRINTOUT; Eosinophils # (auto) 0 uL; Eosinophils % (auto) 0.1 % (0.0-7.0); Hematocrit 30.5 % (41.0-53.0); Hemoglobin 9.6 g/dL (13.5-17.5); Lymphocytes # (auto) 0.8 uL; Lymphocytes % (auto) 6.4 % (10.0-50.0); Mean Corpuscular Hemoglobin 24.9 pg (28.0-32.0); Mean Corpuscular Hgb Conc. 31.7 g/dL (32.0-36.0); Mean Corpuscular Volume 78.6 fL (80.0-100.0); Mean Platelet Volume 11.7 fL (7.4-10.4); Monocytes # (auto) 0.8 uL; Monocytes % (auto) 6.5 % (0.0-12.0); Neutrophils # (auto) 10.2 uL; Neutrophils % (auto) 86.8 % (37.0-80.0); Platelet Count (auto) 184 10^3/uL (140-450); SUSPECT SEE PRINTOUT; White Blood Cell 11.8 10^3/uL (4.4-10.8)
[2017-02-25 08:25] LABS: Red Cell Distribution Width 23.4 % (11.6-16.0)
[2017-02-25 09:00] VITALS: BP 104/62
[2017-02-25] MEDS: FAMOTIDINE 20 MG TAB PO SCH (09:18)
[2017-02-25] MEDS: cefTRIAXone 1GM/50ML D5W 50 ML IV SCH (09:18)
[2017-02-25] MEDS: ASPirin 81 mg TAB PO SCH (09:18)
[2017-02-25] MEDS: ENOXAPARIN SOD 30 MG/0.3 ML SYRINGE SC SCH (09:19)
[2017-02-25 09:21] LABS: BUN/Creatinine Ratio 54.8; Bilirubin, Total 0.7 mg/dL (0.2-1.0); Calcium 8.7 mg/dL (8.5-10.1); Total Protein 5.8 g/dL (6.4-8.2)
[2017-02-25] MEDS: CARVEDILOL 3.125 MG TAB PO SCH (09:21)
[2017-02-25 09:26] LABS: Potassium 2.9 mmol/L (3.5-5.1)
[2017-02-25] MEDS: SODIUM CHLORIDE 0.9% 1,000 ML IV SCH (09:56)
[2017-02-25] MEDS: VANCOMYCIN 750 MG in D5W 5% 250 ML IV SCH (10:23)
[2017-02-25] MEDS ORDERED: MET500T PO (12:50)
[2017-02-25 13:00] VITALS: BP 90/52
[2017-02-25] MEDS ORDERED: POTASSIUM CHL 10% (20 MEQ/15ML) ORAL SOLN PO ONE (13:00)
[2017-02-25 14:59] LABS: Anisocytosis Moderate; Platelet Estimate Adequate
[2017-02-25 15:00] LABS: Hypochromia Moderate; Ovalocytes MODERATE
== END 2017-02-25 15:40 | disposition hospice, home (50) | DRG 871 ==
LOC: ER 17:06 → EDBD 17:06 → TELE 17:07 → TELE-WESTW 02-23 10:50
PROVIDERS: ADMIT Nurse Practitioner; ATTEND Internal Medicine
DX: A41.9 Sepsis, unspecified organism (principal); I21.4 Non-ST elevation (NSTEMI) myocardial infarction; I50.43 Acute on chronic combined systolic (congestive) and diastolic (congestive) heart failure; G93.41 Metabolic encephalopathy; N17.0 Acute kidney failure with tubular necrosis; N39.0 Urinary tract infection, site not specified; I13.0 Hypertensive heart and chronic kidney disease with heart failure and stage 1 through stage 4 chronic kidney disease, or unspecified chronic kidney disease; C34.90 Malignant neoplasm of unspecified part of unspecified bronchus or lung; E44.0 Moderate protein-calorie malnutrition; I42.0 Dilated cardiomyopathy; B37.49 Other urogenital candidiasis; Z68.1 Body mass index [BMI] 19.9 or less, adult; E78.5 Hyperlipidemia, unspecified; E86.0 Dehydration; J44.9 Chronic obstructive pulmonary disease, unspecified; N18.3 Chronic kidney disease, stage 3 (moderate); D18.1 Lymphangioma, any site; D63.8 Anemia in other chronic diseases classified elsewhere; E87.6 Hypokalemia; E11.21 Type 2 diabetes mellitus with diabetic nephropathy; E11.22 Type 2 diabetes mellitus with diabetic chronic kidney disease; I67.2 Cerebral atherosclerosis; I48.91 Unspecified atrial fibrillation; Z51.5 Encounter for palliative care; R16.0 Hepatomegaly, not elsewhere classified; N40.0 Benign prostatic hyperplasia without lower urinary tract symptoms; Z85.05 Personal history of malignant neoplasm of liver; Z85.118 Personal history of other malignant neoplasm of bronchus and lung; Z82.3 Family history of stroke; Z95.0 Presence of cardiac pacemaker; Z71.89 Other specified counseling
CPT/HCPCS: 36415; 70450; 71010; 80053; 81001; 82962; 83036; 83880; 84443; 84484; 85025; 85610; 85730; 87081; 87086; 87088; 87186; 87493; 93005; 94761; 95819; J0153; J0696; J1815; J7060